=== PATIENT | male | born 1945 ===

== ENCOUNTER 2017-02-23 06:19 | Day surgery (SDC) | payer MEDICARE ==
[2017-02-18 15:14] VITALS: BMI 37.1
[2017-02-23 07:35] LABS: BASO # 0.03 K/mm3 (0.0-2.0); BASO % 0.4 % (0.0-3.0); EOS # 0.3 (0.0-0.7); EOS % 4.1 % (1.5-5.0); GRAN # 3.58 (1.4-6.5); GRAN % 52.4 % (50.0-68.0); HEMATOCRIT 39.2 % (42.0-52.0); LYMPH # 2.5 (1.2-3.4); LYMPH % 36.2 % (22.0-35.0); MEAN CELL VOLUME 85.6 fl (80.0-105.0); MEAN CORPUSCULAR HEMOGLOBIN 28.4 pg (25.0-35.0); MEAN CORPUSCULAR HGB CONC 33.2 g/dl (31.0-37.0); MONO # 0.5 (0.1-0.6); MONO % 6.9 % (1.0-6.0); RED CELL DISTRIBUTION WIDTH 13.8 % (11.5-14.5); WHITE BLOOD COUNT 6.8 10^3/ul (4.5-11.0)
[2017-02-23 07:49] LABS: BLOOD UREA NITROGEN 17 mg/dL (7-21); CALCIUM 9.2 mg/dL (8.4-10.5); CARBON DIOXIDE 30 mmol/L (21-33); CHLORIDE 101 mmol/L (98-107); CHOLESTEROL 122 mg/dL (130-200); GFR AFRICAN-AMERICAN > 60; GLUCOSE,RANDOM 118 mg/dL (70-110); POTASSIUM 4.4 mmol/L (3.6-5.0); SODIUM 142 mmol/L (132-148)
[2017-02-23 07:50] VITALS: O2SAT 98
[2017-02-23 07:50] LABS: PARTIAL THROMBOPLASTIN TIME 26.1 Seconds (23.7-30.8)
[2017-02-23] MEDS ORDERED: Lidocaine 2% Inj (20ml) ONE (11:47)
[2017-02-23] MEDS ORDERED: Nitroglycerin 50mg in D5W 0 MG/0 ML BOTTLE IV ONE (11:48)
[2017-02-23] MEDS ORDERED: Iohexol 350 MG/100 ML VIAL ONE ×2 (11:48→13:53)
[2017-02-23] MEDS ORDERED: Iohexol 350mgl/ml 50 ML ONE ×2 (11:48→13:07)
[2017-02-23] MEDS ORDERED: Midazolam 2 MG/2 ML VIAL ONE (12:23)
[2017-02-23 15:47] VITALS: RESP 18; TEMP 98.7
[2017-02-23 18:50] VITALS: BP 121/78; PULSE 60
--- NOTE | 2017-02-23 21:19 | CARDCATH ---
PROCEDURE DATE: 02/23/2017 INDICATIONS: Mr. Jerzy Pettit is a 71-year-old male with past medical history significant coronary artery disease status post CABG 4 years ago that was done at [facility] by Dr. Ruddy Sevilla, was referred to me for evaluation of worsening symptoms of dyspnea on exertion. The patient was noted on transthoracic echocardiogram to have severe aortic stenosis and therefore, stress test was not done. The patient was brought to the candlemaking laborer for evaluation of his bypass anatomy and aortic stenosis. PROCEDURE PERFORMED: Complete heart catheterization with selective left and right coronary angiogram, selective ARAUJO to LAD and venous SVG to PDA angiogram. Right heart catheterization with hemodynamics and saturations. PTCA stenting of SVG to right PDA with use of 3.5 x 24 mm Resolute drug-eluting stent. Degeneration from 90% down to 0% MARIO 3 flow. ACCESS: 6 [place] right femoral arterial access, 7 [place] right femoral venous access. TECHNIQUE OF PROCEDURE: After obtaining informed consent, the patient was brought to the cardiac cath suite in post-absorptive non-sedated state. The patient was prepped and draped in the usual sterile fashion. Lidocaine, 2% was used for infiltration anesthesia. Using modified Seldinger technique, a 6 [place] sheath was introduced into the right femoral artery and 7 [place] sheath was introduced into the right femoral vein subsequently under fluoroscopic guidance with the balloon inflated over the pulmonary artery catheter. It was serially advanced through the IVC into RA, RVPA in wedge position. Hemodynamics and saturations were obtained. RIGHT HEART CATHETERIZATION HEMODYNAMIC FINDINGS: Right atrial pressure 17/16/4 with mean right atrial pressure of 14 mmHg. Right ventricular pressure 46/10/15 with right ventricular end-diastolic pressure of 15 mmHg. Pulmonary capillary wedge pressure 20/22 with mean pulmonary capillary wedge pressure of 18 mmHg. Pulmonary artery pressure 48/12/29 with mean pulmonary artery pressure of 29 mmHg. Cardiac output using the thermodilution method was calculated to be 4.97 L/min with a cardiac index was 2.14 L/m/m2. After doing the right heart catheterization, attention was then paid to the left coronary system over exchange in J-wire, JL4 and JR4 diagnostic catheters were used to engage the left and right coronary systems. Subsequently, the JR4 was also used to engage the SVG graft to the obtuse marginal and RCA and ARAUJO to the LAD. CORONARY ANATOMY: Left main is a large size vessel which bifurcates into anterior descending and left circumflex coronary artery. Left circumflex coronary artery in its mid section is completely occluded. Left anterior descending artery in ono-cq-qgfnfy section is occluded with competitive flow noted from the ARAUJO. Left anterior descending artery gives out two small diagonal branches with moderate stenosis. Right coronary artery mid section 100% occluded. Gives off medium size RV branch. BYPASS ANATOMY: SVG to jump graft to obtuse marginal and right PDA are patent. The graft at the touch down of the right PDA had 95% stenosis. ARAUJO to left anterior descending artery patent. TECHNIQUES AND INTERVENTION: After reviewing the above angiographic findings, it was deemed imperative to fix the SVG graft feeding the right posterior descending artery. Over JR4 guide, exchange length [place] wire was used to negotiate through the 95% stenosis passed into the [place] right PDA. The lesion was predilated with a 2.0 mm balloon and subsequently stented with 3.5 x 24 Resolute drug eluting stent. The lesion reduction down to 0%, good MARIO 3 flow. Subsequent angiogram showed good MARIO 3 flow feeding the whole inferior wall. After fixing the coronary circulation, attention was then paid to evaluate the aortic stenosis. Over AL1 diagnostic catheter, straight tip J-wire was used to negotiate through the valve into the LV. Subsequently, a Juan catheter was used to cross the aortic valve. Simultaneously, LV and aortic pressures were calculated. Mean transaortic gradients were noted to be 37 mmHg with systolic ejection period of 19 sec/min. Aortic valve area was calculated to be 0.95 cm2 using cardiac output of 4.97 L/min. IMPRESSION: Severe aortic stenosis with mean transaortic gradient of 37 mmHg. RECOMMENDATIONS: The patient is to have further evaluation for possible mini-AVR versus TAVR. Min Choudhary MD
--- NOTE | 2017-02-24 08:52 | CARD ---
APPROVED REPORT EKG Measurement Heart [id number] <Conclusion> Normal sinus rhythm Left bundle branch block
== END 2017-02-23 19:28 | disposition home or self-care (01) ==
LOC: CATH 06:19 → 2RSO 14:50 → CATH 19:28
PROVIDERS: ATTEND Internal Medicine Interventional Cardiology
DX: I25.700 Atherosclerosis of coronary artery bypass graft(s), unspecified, with unstable angina pectoris (principal); I35.0 Nonrheumatic aortic (valve) stenosis; I10 Essential (primary) hypertension